=== PATIENT | male | born 1960 | race African-American/Black ===

== ENCOUNTER 2025-02-01 06:51 | Emergency (ER) | payer MEDICAID ==
[~2025-02-01] VITALS: Ht 185.4 cm; Wt 82.0 kg
[~2025-02-01 06:51] MED LIST: BUPR150T3 PO; CARI-518 PO; HYDR-523 PO; MIRT-144 PO; QUET400T PO
[2025-02-01 06:54] VITALS: BP 140/68; PULSE 72; RESP 18; TEMP 36.8; O2SAT 99
== END 2025-02-01 07:06 | disposition home or self-care (01) ==
LOC: ER 06:51
DX: R53.1 Weakness (principal); F12.90 Cannabis use, unspecified, uncomplicated; F31.9 Bipolar disorder, unspecified; Z98.890 Other specified postprocedural states; Z79.899 Other long term (current) drug therapy
CPT/HCPCS: 99283